=== PATIENT | male | born 1935 | race Caucasian/White ===

== ENCOUNTER 2016-06-01 09:18 | Outpatient (CLI) | payer MEDICARE, OTHER ==
[2016-06-01] VITALS (9 sets, daily range): BP systolic 126–142; BP diastolic 56–73
[2016-06-01 09:14] LABS: BASOPHILS % (AUTO) 1 % (0-2); EOSINOPHILS # (AUTO) 0.3 10^3uL; EOSINOPHILS % (AUTO) 4 % (0-4); LYMPHOCYTES # (AUTO) 2.5 X10^3; MONOCYTES # (AUTO) 0.9 X10^3; MONOCYTES % (AUTO) 12 % (3-11); NEUTROPHILS # (AUTO) 3.7 X10^3; NEUTROPHILS % (AUTO) 49 % (51-67); PLATELET COUNT 134 10^3uL (150-450); WHITE BLOOD COUNT 7.59 10^3uL (4.0-11.0)
[2016-06-01 09:15] LABS: MEAN CORPUSCULAR HEMOGLOBIN 34.8 PG (26.0-34.0); MEAN CORPUSCULAR HGB CONC 35.5 g/dL (31.0-37.0); MEAN CORPUSCULAR VOLUME 98 FL (80-100)
--- NOTE | 2016-06-01 09:50 | NUR ---
ARRIVES FROM ED PER AMB UNACCOMPANIED. GAIT STEADY. ALERT AND ORIENTED X 4. SKIN W/P/D. Addendum: 06/03/16 at 0724 by Kizzy Walton RN Late entry.Arrived to room 341 ICU from ED.
--- NOTE | 2016-06-01 10:00 | NUR ---
ASKED PATIENT IF HE WANTED ELMER PRIOR TO INFUSION. REPORTS TOOK HIS OWN ELMER AND TYLENOL UPON ARRIVAL.
[2016-06-01] MEDS ORDERED: FILTER MICRON IV ONE (10:05)
[2016-06-01] MEDS ORDERED: SODIUM CHLORIDE IV ONE (10:05)
[2016-06-01] MEDS ORDERED: INFLIXIMAB FOR IV ONE (10:05)
[2016-06-01] MEDS ORDERED: NS FLUSH 3 ML PRN IV (10:20)
[2016-06-01] MEDS ORDERED: NS FLUSH 10 ML PRN IV (10:20)
[2016-06-01] MEDS ORDERED: LORATADINE (CLARITIN) 10 MG TAB PO SCH (10:20)
[2016-06-01] MEDS ORDERED: EPINEPHrine 1MG/ML (1:1000) 1 ML AMPUL (ADRENALIN) IV PRN (10:25)
[2016-06-01] MEDS ORDERED: diphenhydrAMINE 25 MG (BENADRYL) TABLET PO PRN (10:25)
[2016-06-01] MEDS ORDERED: SODIUM CHLORIDE 100 ML IV PRN (10:25)
[2016-06-01] MEDS ORDERED: ACETAMINOPHEN 325 MG TAB (TYLENOL) PO PRN (10:25)
[2016-06-01] MEDS ORDERED: diphenhydrAMINE 50 MG/ML INJ (BENADRYL) IV PRN (10:25)
--- NOTE | 2016-06-01 13:00 | NUR ---
Infusion complete at this time. VSS. The patient is up independently to the bathroom.
--- NOTE | 2016-06-01 13:28 | NUR ---
The patient is discharged at this time. VSS and IV removed. Patient is ambulatory and independent.
== END 2016-06-01 13:30 | disposition home or self-care (01) ==
LOC: ICU 09:46 → LAB 13:30
PROVIDERS: ATTEND Internal Medicine
DX: M05.841 Other rheumatoid arthritis with rheumatoid factor of right hand (principal); M05.842 Other rheumatoid arthritis with rheumatoid factor of left hand; M06.9 Rheumatoid arthritis, unspecified
CPT/HCPCS: 36415; 82565; 84075; 84450; 85025; 96413; 96415; J1745; J7050

== ENCOUNTER 2016-06-10 09:00 | Outpatient (RCR) | payer MEDICARE, OTHER | END 2016-07-13 11:00 | disposition home or self-care (01) | LOC: PT 09:00 | PROVIDERS: ATTEND Internal Medicine | DX: M25.551 Pain in right hip (principal); G57.01 Lesion of sciatic nerve, right lower limb; M06.89 Other specified rheumatoid arthritis, multiple sites; I10 Essential (primary) hypertension | CPT/HCPCS: 97110; 97140; 97161; G8978; G8979 ==

== ENCOUNTER → 2016-07-27 | Outpatient (CLI) | payer MEDICARE, OTHER ==
[~2016-07-27] MED LIST: AZIT250T81 PO
[2016-07-27 15:13] LABS: BASOPHILS % (AUTO) 1 % (0-2); EOSINOPHILS # (AUTO) 0.2 10^3uL; EOSINOPHILS % (AUTO) 4 % (0-4); LYMPHOCYTES # (AUTO) 2.2 X10^3; MEAN CORPUSCULAR HEMOGLOBIN 34.3 PG (26.0-34.0); MEAN CORPUSCULAR HGB CONC 34.7 g/dL (31.0-37.0); MEAN CORPUSCULAR VOLUME 99 FL (80-100); MONOCYTES # (AUTO) 0.6 X10^3; MONOCYTES % (AUTO) 10 % (3-11); NEUTROPHILS # (AUTO) 2.9 X10^3; NEUTROPHILS % (AUTO) 48 % (51-67); PLATELET COUNT 120 10^3uL (150-450); WHITE BLOOD COUNT 6.09 10^3uL (4.0-11.0)
== END ==
LOC: LAB 14:54
PROVIDERS: ATTEND Internal Medicine
DX: M06.9 Rheumatoid arthritis, unspecified (principal)
CPT/HCPCS: 36415; 82565; 84075; 84450; 85025

== ENCOUNTER → 2016-07-29 | Outpatient (CLI) | payer MEDICARE, OTHER | LOC: EUOP 11:52 | PROVIDERS: ATTEND Internal Medicine | DX: Z53.9 Procedure and treatment not carried out, unspecified reason (principal) ==

== ENCOUNTER 2016-07-31 09:11 | Outpatient (CLI) | payer MEDICARE, OTHER ==
[~2016-07-31] VITALS: Ht 175.3 cm; Wt 91.4 kg
[2016-07-31] VITALS (9 sets, daily range): BP systolic 131–164; BP diastolic 61–74
[~2016-07-31 09:11] MED LIST changes: +ACETAMINOPHEN 325 MG TAB (TYLENOL) PO PRN; +EPINEPHrine 1MG/ML (1:1000) 1 ML AMPUL (ADRENALIN) IV PRN; +FILTER MICRON IV ONE; +INFLIXIMAB FOR IV ONE; +LORATADINE (CLARITIN) 10 MG TAB PO SCH; +NS FLUSH 10 ML PRN IV; +NS FLUSH 3 ML PRN IV; +SODIUM CHLORIDE 100 ML IV PRN; +SODIUM CHLORIDE IV ONE; +diphenhydrAMINE 25 MG (BENADRYL) TABLET PO PRN; +diphenhydrAMINE 50 MG/ML INJ (BENADRYL) IV PRN
--- NOTE | 2016-07-31 09:21 | NUR ---
Pt. arrives to [facility] ambulatory for outpatient Remicade infusion.
--- NOTE | 2016-07-31 09:48 | NUR ---
Remicade infusion started at this time to 20g in LW. VSS. Pt. took Katy 180mg from home, prior to administration.
--- NOTE | 2016-07-31 12:03 | NUR ---
Remicade infusion is complete. VSS. Pt. tolerated well.
--- NOTE | 2016-07-31 12:31 | NUR ---
Pt. remains stable post Remicade infusion. Peripheral IV DC'd at this time.
--- NOTE | 2016-07-31 12:37 | NUR ---
Pts. 30 min post VS are stable. Pt. discharged to home at this time.
== END 2016-07-31 12:37 | disposition home or self-care (01) ==
LOC: ICU 09:15 → EUOP 12:37
PROVIDERS: ATTEND Internal Medicine
DX: M05.841 Other rheumatoid arthritis with rheumatoid factor of right hand (principal); M05.842 Other rheumatoid arthritis with rheumatoid factor of left hand
CPT/HCPCS: 96413; 96415; J1745; J7050